=== PATIENT | male | born 1985 | race Caucasian/White ===

== ENCOUNTER 2017-02-27 10:55 | Outpatient (CLI) | payer OTHER ==
--- NOTE | 2017-02-27 14:17 | MRI Report ---
EXAM: MRI LUMBAR SPINE WITHOUT CONTRAST EXAM DATE: 02/27/2017 11:40 AM. CLINICAL HISTORY: 31-year-old man with low back pain radiating into the left leg and left toe numbnes s and tingling. COMPARISON: None. TECHNIQUE: Multiplanar, multisequence T1-weighted and fluid-sensitive sequences of the lumbar spine f rom T12 to S1 without contrast. Other: None. FINDINGS: Spinal Cord: The conus terminates at L1. Cauda equina nerve roots are normal in appearance. Alignment: Normal. No scoliosis or spondylolisthesis. Bone Marrow: Five [id number] lumbar vertebral bodies are present. No gross fractures or bone les ions. Minimal degenerative endplate edema is present at L4-L5. Disk Levels/Facets: T12-L1: Unremarkable. L1-L2: Unremarkable. L2-L3: Unremarkable. L3-L4: Unremarkable. L4-L5: There is distal desiccation and mild height loss. Small broad-based disk extrusion with high i ntensity zone extends rostral to the disk space approximately 7 mm. There is mild narrowing of the ce ntral canal. Disk in the subarticular space and mild facet hypertrophy results in mild to moderate na rrowing of the neural foramina bilaterally. L5-S1: There is disk desiccation and mild height loss. Small broad-based disk bulge is present withou t significant narrowing of the central canal or lateral recesses. Disk in the subarticular space resu lts in mild narrowing of the right neural foramen without significant narrowing on the left. Musculature: Normal. No edema or fatty atrophy. Other: Visualized contents of the abdomen and pelvis are unremarkable. IMPRESSION: 1. Degenerative disk changes in the lower lumbar spine with minimal bony endplate edema at L4-L5. 2. L4-L5: Small broad-based disk extrusion with high intensity zone results in mild narrowing of the central canal and mild to moderate narrowing of the neural foramina bilaterally. 3. L5-S1: Mild narrowing of the right neural foramen. Comment: The following findings are so common in adults without low back pain that while we report th eir presence, they must be interpreted with caution and in the context of the clinical situation. (Re steffany Tran et al, Spine 2001) Prevalence of findings in patients without low back pain: Disk degeneration (any evidence): 92% Disk desiccation/T2 signal loss: 83% Disk height loss: 56% Disk bulge: 64% Disk protrusion: 32% Annular tear/high intensity zone: 38% [facility] Referring Provider Line: [phone] SITE ID: [id number]
== END 2017-02-27 10:56 | disposition home or self-care (01) ==
LOC: DI 10:55
PROVIDERS: ATTEND General Practice
DX: M51.26 Other intervertebral disc displacement, lumbar region (principal); M51.36 Other intervertebral disc degeneration, lumbar region; M51.37 Other intervertebral disc degeneration, lumbosacral region
CPT/HCPCS: 72148